=== PATIENT | male | born 1965 | race Two or more races ===

== ENCOUNTER 2019-05-10 10:51 | Inpatient (IN) | payer OTHER ==
[~2019-05-10] VITALS: Ht 180.3 cm; Wt 77.1 kg
--- NOTE | 2019-05-10 11:02 | NUR ---
Pt came into the ed c/o lower back pain, neck s/p fall from 20 feet ladder while putting up [employer] lights, -ko, 10/10 pain "i am having a hard time breathing" 98% room air. Pt endorses 10/10 lower back pain. Pt aaox4, vss, breathing even and unlabored on room w/ nad noted. Pt connected to the monitor and pox.
[2019-05-10] MEDS ORDERED: HYDROMORPHONE 1 MG/1 ML DISP.SYRIN ONE ×3 (11:59→16:07)
[2019-05-10] MEDS ORDERED: ONDANSETRON HCL/PF 4 MG/2 ML VIAL ONE (11:59)
[2019-05-10] MEDS ORDERED: ONDANSETRON HCL/PF 4 MG/2 ML VIAL IVP ONE (12:00)
[2019-05-10] MEDS ORDERED: HYDROMORPHONE INJ 2 MG/ML DISP.SYRIN IV ONE ×3 (12:00→16:00)
[2019-05-10] MEDS ORDERED: IV NS 0.9% 1,000 ML BAG IV ONE (12:00)
[2019-05-10 12:12] LABS: BASOPHILS % (AUTO) 0.3 % (0.0-2.0); HEMATOCRIT 44 % (39-51); LYMPHOCYTES % (AUTO) 9.2 % (20.0-44.0); MEAN CORPUSCULAR HGB CONC 34 g/dl (31.0-36.0); MEAN CORPUSCULAR VOLUME 93 fL (80-96); MONOCYTES # (AUTO) 0.4 /CMM (0.1-1.30); NEUTROPHILS # (AUTO) 9.2 /CMM (1.8-8.9); NEUTROPHILS % (AUTO) 86.5 % (43.0-81.0); PLATELET COUNT (AUTO) 250 /CMM (150-450); RED BLOOD CELL COUNT(AUTO) 4.76 MIL/uL (4.5-6.0); WHITE BLOOD COUNT (AUTO) 10.6 K/uL (4.3-11.0)
[2019-05-10 12:28] LABS: CALCIUM, SERUM 9.5 mg/dL (8.5-10.1); CREATININE 0.8 mg/dL (0.6-1.3); POTASSIUM 3.6 mmol/L (3.5-5.1)
--- NOTE | 2019-05-10 13:21 | NUR ---
CALLED [facility] [phone] [facility].
--- NOTE | 2019-05-10 13:44 | NUR ---
CALLED FOR MS BED STABLE MOVE SHEET SUBMITTED TO ADMITTING
[2019-05-10 14:30] VITALS: BP 139/90
--- NOTE | 2019-05-10 15:40 | NUR ---
[facility] PAGED
--- NOTE | 2019-05-10 15:53 | NUR ---
GOT BED 312-1
--- NOTE | 2019-05-10 16:05 | NUR ---
REPORT GIVEN TO MICHAEL HUNT
[2019-05-10 16:27] LABS: BILIRUBIN,URINE Negative (NEGATIVE); BLOOD, URINE Trace-intact Ery/uL (NEGATIVE); COLOR,URINE Yellow (YELLOW); KETONES,URINE Negative (NEGATIVE); LEUKOCYTE ESTERASE ,URINE Negative (NEGATIVE); NITRITE, URINE Negative (NEGATIVE); PH,URINE 7.5 (5.0-8.0); PROTEIN,URINE Negative (NEGATIVE); UGLUCOSE Negative (NEGATIVE); UROBILINOGEN,URINE 0.2 EU/dL (0.2)
[2019-05-10 16:28] LABS: APPEARANCE,URINE HAZY (CLEAR)
--- NOTE | 2019-05-10 16:32 | NUR ---
PT TRANSPORTED TO ROOM 312 IN STABLE CONDITION
[2019-05-10 16:45] VITALS: BP 139/90
--- NOTE | 2019-05-10 16:45 | NUR ---
MS PROFESSOR OF MATHEMATICS NOTES PATIENT TRANSFERRED FROM ER. PATIENT REPORTED THAT HE FELL FROM A 20 FT LADDER AND FELL DIRECTLY ON HIS BACK/BUTTOCKS. CT WAS DONE IN THE ER, NO FRACTURE NOTED. PATIENT ABLE TO AMBULATE. COMPLAINING OF PAIN RATED AT 8-9/10. ON ROOM AIR. IV ON LEFT HAND, SIZE 20, SL. PATIENT REFUSED SKIN ASSESSMENT DUE TO PAIN. VITAL SIGNS - BP: 139/90 HR: 76 RR: 18 TEMP: 99 SPO2: 97. PATIENT BELONGINGS CHECKED. PATIENT IS A SMOKER AND SIGNED SMOKING CONSENT FORM. PATIENT SEEN BY DR. MOBLEY FOR NEW ADMISSION AND MEDICATION. CALL LIGHT WITHIN PATIENT'S REACH. WILL CONTINUE TO MONITOR.
[2019-05-10] MEDS ORDERED: MORPHINE SULFATE INJ 2 MG/ML DISP.SYRIN IV PRN (17:00)
[2019-05-10] MEDS ORDERED: Z GUARD REMEDY 2 OZ OINT TP PRN (17:00)
[2019-05-10] MEDS ORDERED: HYDROCODONE/APAP 5/325MG 1 EACH TABLET PO PRN (17:00)
[2019-05-10] MEDS ORDERED: ONDANSETRON HCL/PF 4 MG/2 ML VIAL IVP PRN (17:00)
[2019-05-10] MEDS ORDERED: MAGNESIUM HYDROXIDE 30 ML UDC PO PRN (17:00)
[2019-05-10] MEDS ORDERED: MAG HYDROX/AL HYDROX/SIMETH 30 ML UDC PO PRN (17:00)
[2019-05-10] MEDS ORDERED: ZOLPIDEM TARTRATE 5 MG TABLET PO PRN (17:00)
[2019-05-10] MEDS ORDERED: ACETAMINOPHEN 325 MG TABLET PO PRN (17:00)
--- NOTE | 2019-05-10 18:30 | NUR ---
MS RN CLOSING NOTES PATIENT WENT OUT FOR SMOKE BREAK X 2. PATIENT IS ATTENTION SEEKER AND REFUSES TO FOLLOW DIRECTIONS. WILL ENDORSE TO MONUMENT SETTER TO FOLLOW UP PLAN OF CARE.
[2019-05-10 18:59] LABS: BACTERIA,URINE None seen /HPF (None Seen); SQUAMOUS EPITHELIAL CELL,UR Few /HPF (None Seen); WBC,URINE 0-2 /HPF (0-3)
--- NOTE | 2019-05-10 19:00 | NUR ---
RN medsurg opening notes Received Pt from morning nurse. Pt is alert and orientedX4, verbally abusive, aggresive and uncooperative with POC. Respiration is normal in room air. No SOB. No nausea or vomiting. IV sites at L hand # 20 is clean, intact, patent and SL. Pt is able to ambulate without assistance. Safety precautions is maintained. Bed at low position, brakes locked, side rails upX2 and call light is within reach. Will continue to monitor.
--- NOTE | 2019-05-10 19:51 | NUR ---
MICHAEL contreras notes Pt is verbally abusive, aggresive, screaming, uncooperative to staffs. Pt states " i want my pain medication now." Called security because Pt is not cooperative and verbally aggresive and abusive. Will continue to monitor.
[2019-05-10 20:00] VITALS: BP 165/95
--- NOTE | 2019-05-10 20:00 | NUR ---
RN medsur notes Pt refused to have belonging's list checked. Will continue to monitor.
[2019-05-10] MEDS: HYDROMORPHONE 1 MG/1 ML DISP.SYRIN IV PRN (20:06)
--- NOTE | 2019-05-10 20:06 | NUR ---
RN ben notes Pt is complaining of lower back pain. Administered Dilaudid 1 mg IV push as ordered per Pt's request for pain 02/15. Safety precautions is maintained. Instructed to call. Will continue to monitor.
--- NOTE | 2019-05-10 20:07 | NUR ---
RN medsur notes Pt is verbally abusive, aggresive and threat the staffs. Pt wants dilaudid specifically. Dilaudid was given per Pt's request. Pt states " I want more!! You are not giving me enough!! I spoke with the doctor already!! I want more now!! MD ordered pain medication every 4 hr. Charge nurse is informed and aware. Pt went down to smoke with QIAN Acharya. Will continue to monitor.
--- NOTE | 2019-05-10 20:27 | NUR ---
RN ben notes Pt is in the room. Snack is given per Pt's request. Will continue to monitor.
--- NOTE | 2019-05-10 21:13 | NUR ---
RN medsurg notes Pt is resting in bed comfortably. Awaken easily. Respiration is normal in room air. No SOB. No S/S of distress noted. Will continue to monitor.
--- NOTE | 2019-05-10 21:17 | NUR ---
MRI APPROVED BY DR. BARROSO
--- NOTE | 2019-05-10 22:01 | NUR ---
RN medsurg notes MD ordered for MRI. MRI checked list is done and signed by Pt. Pt verbalize understanding.
--- NOTE | 2019-05-10 22:20 | NUR ---
RN souravsur notes Pt went down to smoke accompany by QIAN Acharya. Pt is verbally abusive, aggresive, screaming, and uncooperative. Informed Pt that smoking hours is over. Pt stated "I will smoke my last cigarette." Charge nurse is aware and informed. Will continue to monitor.
--- NOTE | 2019-05-10 22:30 | NUR ---
MICHAEL contreras notes Pt is back to the room. Pt is still very aggresive, verbally abusive, yelling and screaming towards staff. Pt stated " I want my pain medication now!!" Informed Pt that is not due for pain meds. Charge nurse is aware and informed. Will continue to monitor.
[2019-05-11] MEDS: HYDROMORPHONE 1 MG/1 ML DISP.SYRIN IV PRN ×3 (01:12→09:24)
--- NOTE | 2019-05-11 01:12 | NUR ---
RN medsurabraham notes Pt is complaining of pain. Administered Dilaudid 1 mg IV push as ordered for pain on lower back 10/10 on pain scale. Safety precautions is maintained. Instructed to call. Will continue to monitor.
--- NOTE | 2019-05-11 03:00 | NUR ---
RN ben notes Pt is verbally abusive, aggresive, screaming, yelling and threating the staffs. Security is called. Informed Pt that dilaudid is not due yet. Dilaudid was given at 0112. Pt got so mad, screaming, yelling very loud, aggresive towards the staff including the charge nurse. Pt called staff "Bitch." Will continue to monitor.
--- NOTE | 2019-05-11 03:38 | NUR ---
MICHAEL contreras notes Application Helper Laura Picekns is in the room with Pt.
--- NOTE | 2019-05-11 05:01 | NUR ---
RN medsurg notes Pt keep asking and caling for pain meds dilaudid, verbally abusive and aggresive towards staffs. Administered Dilaudid 1 mg IV push as ordered for pain on lower back 10/10 on pain scale. Safety precautions is maintained. Instructed to call. Charge nurse is present in the room. Will continue to monitor.
--- NOTE | 2019-05-11 05:15 | NUR ---
Rn ben notes Pt stated "I am a [place] too and beautiful. Look at me I'm beautiful. You are ugly. And now give me a coffeee!!" Gave a cup of coffee as Pt request. Charge nurse and power transformer repair supervisor are aware and informed. Will continue to monitor.
--- NOTE | 2019-05-11 06:42 | NUR ---
RN medsurg notes Received order from Dr. Valentin for psych eval for Pt. Charge nurse is aware and informed. Orders carried out.
--- NOTE | 2019-05-11 06:44 | NUR ---
RN medsurg notes Send a fax to [facility]. Called [facility] to find out Psych MD. Dr. Moore will be Psych MD for today.
--- NOTE | 2019-05-11 06:59 | NUR ---
RN medsurg closing notes Pt is sitting in bed drinking a coffee. Pt is alert and orientedX4. Pt is verbally abusive, aggressive, manipulative, and uncooperative. Pt keep asking for dilaudid all the time and asking to smoke outside. Informed Pt is not due for dilaudid and to smoke outside. Respiration is normal in room air. No SOB. No S/S of distress noted. IV sites at L hand# 20 is clean, intact, patent and SL. Pain meds PRN was given as ordered. Pt refused skin asessment. Safety precautions is maintained. Bed at low position, brakes locked, side railsupX2 and call light is within reach. Will endorse to morning nurse for ESPERANZA.
[2019-05-11 07:09] LABS: BASOPHILS % (AUTO) 0.4 % (0.0-2.0); EOSINOPHILS % (AUTO) 0.4 % (0.0-6.0); HEMATOCRIT 46 % (39-51); HEMOGLOBIN 15.7 g/dL (13.5-17.5); LYMPHOCYTES # (AUTO) 1.2 /CMM (0.8-4.8); LYMPHOCYTES % (AUTO) 10.8 % (20.0-44.0); MEAN CORPUSCULAR HGB CONC 34 g/dl (31.0-36.0); MEAN CORPUSCULAR VOLUME 93 fL (80-96); MONOCYTES # (AUTO) 0.6 /CMM (0.1-1.30); MONOCYTES % (AUTO) 4.8 % (2.0-12.0); NEUTROPHILS # (AUTO) 9.6 /CMM (1.8-8.9); NEUTROPHILS % (AUTO) 83.6 % (43.0-81.0); PLATELET COUNT (AUTO) 251 /CMM (150-450); RED BLOOD CELL COUNT(AUTO) 5.01 MIL/uL (4.5-6.0); WHITE BLOOD COUNT (AUTO) 11.4 K/uL (4.3-11.0)
[2019-05-11 07:38] LABS: CALCIUM, SERUM 9.1 mg/dL (8.5-10.1); CREATININE 0.8 mg/dL (0.6-1.3); MAGNESIUM 1.9 mg/dL (1.8-2.4); PHOSPHORUS 3.5 mg/dL (2.5-4.9); POTASSIUM 4.3 mmol/L (3.5-5.1)
[2019-05-11 08:00] VITALS: BP 135/95
--- NOTE | 2019-05-11 08:20 | NUR ---
MS RN RECEIVED PATIENT WALKING AROUND THE [address] WAY,ALERT, ORIENTED X4, SO DEMENDING AND SO MEAN TO NURSES, PATIENT IS ALWAYS DEMENDING FOR PAIN MEDS,EVEN ITS NOT YET TIME.
--- NOTE | 2019-05-11 08:30 | NUR ---
MS RN PATIENT DEMANDING TO GO SMOKING, ABOUT TO GO FOR MRI BACK, TECHNICIANS CAME TO PICK HIM UP, BUT REFUSING TO HAVE PROCEDURE, PATIENT WANTS TO GO AMA, EXPLAINED THE RISKS OF GOING AMA, SECURITY WAS CALLED DUE TO PATIENT IS VERBALLY ABUSIVE TO RNS. AMA PAPER SIGNED, PATIENT STILL INSIST TO GO AMA, NO DISTRESS NOTED, IV AND BADGE WAS REMOVED BY HIMSELF.
== END 2019-05-11 09:15 | disposition left against medical advice (07) | DRG 347 ==
LOC: ER 10:51 → MED 15:58
PROVIDERS: ADMIT Family Medicine; ATTEND Family Medicine
DX: M48.061 Spinal stenosis, lumbar region without neurogenic claudication (principal); D72.829 Elevated white blood cell count, unspecified; F17.210 Nicotine dependence, cigarettes, uncomplicated; R73.9 Hyperglycemia, unspecified; G89.29 Other chronic pain; M54.89 Other dorsalgia; W11.XXXA Fall on and from ladder, initial encounter; Y92.89 Other specified places as the place of occurrence of the external cause
CPT/HCPCS: 36415; 71045-TC; 72125-TC; 72128-TC; 72131-TC; 80048-TC; 80061-TC; 81000-TC; 83735-TC; 84100-TC; 85025-TC; 85730-TC; 87081-TC; G0378; J1170; J2270; J2405; J7030